=== PATIENT | female | born 1960 | race Caucasian/White ===

== ENCOUNTER 2017-07-27 08:23 | Inpatient (IN) | payer BC ==
[~2017-07-27 08:23] MED LIST: ATROPINE 1 MG/10 ML SYRINGE IV; CEFAZOLIN 1 GM INJ; DIPHENHYDRAMINE 50 MG INJ IV; EPHEDrine SULFATE 50 MG/5 ML SYG IV; FENTAnyl 50 MCG/ML VIAL IV; HYDROmorphONE (0.2 MG/ML) 10ML SYG IV; LABETALOL HCL 20MG INJ IV; LIDOCAINE 100 MG SYRINGE; MEPERIDINE 25 MG INJ IV; MIDAZOLAM 1 MG/ML 2 ML INJ IV; ONDANSETRON 4 MG INJ IV; OXYCODONE/ACETAMINOPHEN (5/325) TAB PO; hydrALAzine 20 MG INJ IV; morphine (1 MG/ML) 10ML SYRINGE IV
[2017-07-27 09:27] LABS: ADD MAN DIFF? NO
[2017-07-27 09:29] LABS: BASOPHIL # 0.1 10^3/ul (0.0-0.1); BASOPHILS % 0.6 % (0.0-2.0); EOSINOPHILS # 0.4 10^3/ul (0.0-0.5); EOSINOPHILS % 4.6 % (0.0-7.0); HEMATOCRIT 40.6 % (37.0-47.0); HEMOGLOBIN 12.9 g/dl (12.0-16.0); LYMPHOCYTES # 2.5 10^3/ul (0.8-2.9); LYMPHOCYTES % 26.1 % (15.0-51.0); MEAN CORPUSCULAR HGB CONC 31.8 g/dl (32.0-37.0); MEAN CORPUSCULAR VOLUME 78.8 fl (82.0-101.0); MEAN PLATELET VOLUME 10.7 fl (7.4-10.4); MONOCYTE # 0.7 10^3/ul (0.3-0.9); MONOCYTES % 7.2 % (0.0-11.0); NEUTROPHIL # 5.9 10^3/ul (1.6-7.5); NEUTROPHILS % 61.1 % (39.0-77.0); PLATELET COUNT 399 10^3/UL (140-415); RED BLOOD COUNT 5.15 10^6/ul (4.20-5.40); RED CELL DISTRIBUTION WIDTH 15.9 % (11.5-14.5)
[2017-07-27 09:29] LABS: WHITE BLOOD COUNT 9.6 10^3/ul (4.8-10.8)
[2017-07-27 09:51] LABS: INR 0.84; PROTIME 11.6 Sec (11.9-14.9); PT RATIO 0.9
[2017-07-27 09:52] LABS: PARTIAL THROMBOPLASTIN TIME 28.4 Sec (25.0-35.0)
[2017-07-27] MEDS ORDERED: FENTAnyl 50 MCG/ML VIAL (09:59)
[2017-07-27] MEDS ORDERED: PROPOFOL 20 ML (09:59)
[2017-07-27] MEDS ORDERED: MIDAZOLAM 1 MG/ML 2 ML INJ (09:59)
[2017-07-27] MEDS ORDERED: ROCURONIUM 50 MG INJ (09:59)
[2017-07-27] MEDS ORDERED: GLYCOPYRROLATE 0.4 MG INJ (09:59)
[2017-07-27] MEDS ORDERED: NEOSTIGMINE 3 MG/3 ML SYRINGE (09:59)
[2017-07-27] MEDS ORDERED: DEXAMETHASONE 4 MG/ML 1 ML INJ (10:03)
[2017-07-27] MEDS ORDERED: ONDANSETRON 4 MG INJ ×2 (10:04→12:42)
[2017-07-27 10:12] LABS: ALANINE AMINOTRANSFERASE 41 IU/L (13-69); ALBUMIN 4.4 g/dl (3.3-4.9); ALBUMIN/GLOBULIN RATIO 1.41; ALKALINE PHOSPHATASE 139 IU/L (42-121); ANION GAP 15 (8-16); ASPARTATE AMINO TRANSFERASE 29 IU/L (15-46); BILIRUBIN,INDIRECT 0.2 mg/dl (0-1.1); BILIRUBIN,TOTAL 0.2 mg/dl (0.2-1.3); CARBON DIOXIDE 25 mmol/L (21-31); CHLORIDE 106 mmol/L (97-110); GLUCOSE 98 mg/dl (70-220); TOTAL PROTEIN 7.5 g/dl (6.1-8.1)
[2017-07-27 10:13] LABS: BLOOD UREA NITROGEN 14 mg/dl (7-20); CALCIUM 9.2 mg/dl (8.4-10.2); CREATININE 0.62 mg/dl (0.44-1.00); POTASSIUM 4.1 mmol/L (3.5-5.1); SODIUM 142 mmol/L (135-144)
[2017-07-27] MEDS: SOD CHLORIDE 0.9% 1,000 ML IV ×2 (12:00→19:20)
[2017-07-27] MEDS: CEFAZOLIN 2 GM/50 ML (PMX) 50 ML IVPB (12:00)
[2017-07-27] MEDS ORDERED: SUCCINYLCHOLINE CHLORIDE 100 MG/5 ML SYG IV (12:42)
[2017-07-27] MEDS: THROMBIN 5000 UNIT VIAL (13:59)
[2017-07-27] MEDS: HYDROmorphONE (0.2 MG/ML) 10ML SYG IV ×3 (14:48→15:16)
[2017-07-27] MEDS ORDERED: ONDANSETRON 4 MG INJ IV (15:00)
[2017-07-27] MEDS: D5W-0.45 NACL + KCL 20 MEQ 1,000 ML IV (16:35)
[2017-07-27] MEDS: ACETAMINOPHEN 1000MG/100ML IV 100 ML IVPB (17:40)
[2017-07-27] MEDS: morphine 2 MG INJ IV ×2 (19:54→22:48)
[2017-07-27 20:14] LABS: CALCIUM 8.5 mg/dl (8.4-10.2)
[2017-07-28 01:45] LABS: CALCIUM 8.9 mg/dl (8.4-10.2)
[2017-07-28] MEDS: D5W-0.45 NACL + KCL 20 MEQ 1,000 ML IV ×4 (03:11→22:43)
[2017-07-28] MEDS: morphine 2 MG INJ IV ×3 (03:12→15:19)
[2017-07-28 09:19] LABS: CALCIUM 8.7 mg/dl (8.4-10.2)
[2017-07-28] MEDS: LIOTHYRONINE 25 MCG TAB PO ×2 (15:28→22:43)
[2017-07-29] MEDS: morphine 2 MG INJ IV (00:02)
[2017-07-29 05:36] LABS: ADD MAN DIFF? NO
[2017-07-29 05:50] LABS: ABNORMAL IP MESSAGE 1; BASOPHIL # 0.1 10^3/ul (0.0-0.1); BASOPHILS % 0.3 % (0.0-2.0); HEMATOCRIT 37.1 % (37.0-47.0); HEMOGLOBIN 11.9 g/dl (12.0-16.0); LYMPHOCYTES # 1.9 10^3/ul (0.8-2.9); LYMPHOCYTES % 8.7 % (15.0-51.0); MEAN CORPUSCULAR HEMOGLOBIN 25.1 pg (29.0-33.0); MEAN CORPUSCULAR HGB CONC 32.1 g/dl (32.0-37.0); MEAN CORPUSCULAR VOLUME 78.1 fl (82.0-101.0); MEAN PLATELET VOLUME 10.7 fl (7.4-10.4); MONOCYTE # 1.8 10^3/ul (0.3-0.9); MONOCYTES % 8.2 % (0.0-11.0); NEUTROPHIL # 18.2 10^3/ul (1.6-7.5); NEUTROPHILS % 82.2 % (39.0-77.0); PLATELET COUNT 397 10^3/UL (140-415); RED BLOOD COUNT 4.75 10^6/ul (4.20-5.40); RED CELL DISTRIBUTION WIDTH 16.1 % (11.5-14.5)
[2017-07-29 05:50] LABS: WHITE BLOOD COUNT 22.2 10^3/ul (4.8-10.8)
[2017-07-29 06:12] LABS: POSITIVE DIFF @See below
[2017-07-29] MEDS: ACETAMINOPHEN 1000MG/100ML IV 100 ML IVPB ×2 (06:18→18:18)
[2017-07-29 06:21] LABS: ANION GAP 14 (8-16); BLOOD UREA NITROGEN 10 mg/dl (7-20); CALCIUM 9.5 mg/dl (8.4-10.2); CARBON DIOXIDE 26 mmol/L (21-31); CHLORIDE 102 mmol/L (97-110); CREATININE 0.54 mg/dl (0.44-1.00); GLUCOSE 116 mg/dl (70-220); POTASSIUM 4.7 mmol/L (3.5-5.1); SODIUM 137 mmol/L (135-144)
[2017-07-29 06:33] LABS: CALCIUM 8.9 mg/dl (8.4-10.2)
[2017-07-29] MEDS: LIOTHYRONINE 25 MCG TAB PO ×2 (08:04→21:43)
[2017-07-29] MEDS: CEFAZOLIN 1 GM/50 ML (PMX) 50 ML IVPB ×3 (11:57→23:41)
[2017-07-29] MEDS: D5W-0.45 NACL + KCL 20 MEQ 1,000 ML IV ×2 (14:40→17:00)
[2017-07-30] MEDS: D5W-0.45 NACL + KCL 20 MEQ 1,000 ML IV ×3 (02:18→17:31)
[2017-07-30] MEDS: CEFAZOLIN 1 GM/50 ML (PMX) 50 ML IVPB ×4 (05:38→23:53)
[2017-07-30] MEDS: morphine 2 MG INJ IV (05:42)
[2017-07-30 06:17] LABS: ADD MAN DIFF? NO
[2017-07-30 06:31] LABS: BASOPHIL # 0.1 10^3/ul (0.0-0.1); BASOPHILS % 0.4 % (0.0-2.0); EOSINOPHILS # 0.1 10^3/ul (0.0-0.5); EOSINOPHILS % 0.9 % (0.0-7.0); HEMATOCRIT 36.9 % (37.0-47.0); HEMOGLOBIN 11.8 g/dl (12.0-16.0); LYMPHOCYTES # 2.1 10^3/ul (0.8-2.9); LYMPHOCYTES % 14.4 % (15.0-51.0); MEAN CORPUSCULAR HEMOGLOBIN 25.3 pg (29.0-33.0); MEAN CORPUSCULAR VOLUME 79.2 fl (82.0-101.0); MEAN PLATELET VOLUME 10.7 fl (7.4-10.4); MONOCYTE # 1.2 10^3/ul (0.3-0.9); MONOCYTES % 8.4 % (0.0-11.0); NEUTROPHIL # 10.9 10^3/ul (1.6-7.5); NEUTROPHILS % 75.4 % (39.0-77.0); PLATELET COUNT 385 10^3/UL (140-415); RED BLOOD COUNT 4.66 10^6/ul (4.20-5.40); RED CELL DISTRIBUTION WIDTH 15.9 % (11.5-14.5)
[2017-07-30 06:31] LABS: WHITE BLOOD COUNT 14.4 10^3/ul (4.8-10.8)
[2017-07-30 06:39] LABS: ANION GAP 13 (8-16); BLOOD UREA NITROGEN 10 mg/dl (7-20); CARBON DIOXIDE 27 mmol/L (21-31); CHLORIDE 105 mmol/L (97-110); CREATININE 0.58 mg/dl (0.44-1.00); GLUCOSE 119 mg/dl (70-220); POTASSIUM 4.1 mmol/L (3.5-5.1); SODIUM 141 mmol/L (135-144)
[2017-07-30] MEDS: LIOTHYRONINE 25 MCG TAB PO ×2 (09:53→20:46)
[2017-07-31] MEDS: D5W-0.45 NACL + KCL 20 MEQ 1,000 ML IV ×2 (00:30→05:05)
[2017-07-31] MEDS: ACETAMINOPHEN 1000MG/100ML IV 100 ML IVPB (00:30)
[2017-07-31] MEDS: HYDROCODONE/APAP (5/325) TAB PO (03:16)
[2017-07-31 05:19] LABS: ADD MAN DIFF? NO
[2017-07-31 05:26] LABS: WHITE BLOOD COUNT 11.7 10^3/ul (4.8-10.8)
[2017-07-31 05:26] LABS: BASOPHIL # 0.1 10^3/ul (0.0-0.1); BASOPHILS % 0.4 % (0.0-2.0); EOSINOPHILS # 0.3 10^3/ul (0.0-0.5); EOSINOPHILS % 2.4 % (0.0-7.0); HEMATOCRIT 36.6 % (37.0-47.0); HEMOGLOBIN 11.6 g/dl (12.0-16.0); LYMPHOCYTES # 2.2 10^3/ul (0.8-2.9); LYMPHOCYTES % 18.8 % (15.0-51.0); MEAN CORPUSCULAR HEMOGLOBIN 24.8 pg (29.0-33.0); MEAN CORPUSCULAR HGB CONC 31.7 g/dl (32.0-37.0); MEAN CORPUSCULAR VOLUME 78.4 fl (82.0-101.0); MEAN PLATELET VOLUME 10.4 fl (7.4-10.4); MONOCYTES % 8.2 % (0.0-11.0); NEUTROPHIL # 8.1 10^3/ul (1.6-7.5); NEUTROPHILS % 69.8 % (39.0-77.0); PLATELET COUNT 381 10^3/UL (140-415); RED BLOOD COUNT 4.67 10^6/ul (4.20-5.40); RED CELL DISTRIBUTION WIDTH 15.4 % (11.5-14.5)
[2017-07-31] MEDS: CEFAZOLIN 1 GM/50 ML (PMX) 50 ML IVPB ×2 (06:00→12:10)
[2017-07-31] MEDS: LIOTHYRONINE 25 MCG TAB PO (08:33)
== END 2017-07-31 16:15 | disposition home or self-care (01) | DRG 626 ==
LOC: SDS 08:23 → MS1 15:01
PROC: 0GTK0ZZ Resection of Thyroid Gland, Open Approach (ICD-10-PCS; principal; 2017-07-27 12:09)
DX: C73 Malignant neoplasm of thyroid gland (principal); L03.221 Cellulitis of neck; E89.0 Postprocedural hypothyroidism; G89.18 Other acute postprocedural pain
CPT/HCPCS: 71045; 80048; 80053; 82310; 84703; 85025; 85610; 85730; 93005